=== PATIENT | male | born 1940 | race Caucasian/White ===

== ENCOUNTER → 2022-03-09 13:56 | Outpatient (BNVA) | payer MEDICARE, OTHER, SELFPAY | PROVIDERS: Visit Provider Family Medicine | DX: M25.572 Pain in left ankle and joints of left foot (principal); M10.9 Gout, unspecified | CPT/HCPCS: 73610; 80053; 84550 ==

== ENCOUNTER → 2022-03-27 16:31 | Outpatient (BNVA) | payer MEDICARE, OTHER, SELFPAY | PROVIDERS: PCP Family Medicine; Visit Provider Family Medicine | DX: M10.9 Gout, unspecified (principal); I10 Essential (primary) hypertension | CPT/HCPCS: 84550 ==

== ENCOUNTER → 2022-07-18 16:37 | Outpatient (BNVA) | payer MEDICARE, OTHER, SELFPAY | PROVIDERS: PCP Family Medicine; Visit Provider Family Medicine | DX: I10 Essential (primary) hypertension (principal); M10.9 Gout, unspecified | CPT/HCPCS: 80053; 80061; 84443; 84550; 85025 ==

== ENCOUNTER → 2022-10-03 14:59 | Outpatient (BNVA) | payer MEDICARE, OTHER, SELFPAY | PROVIDERS: PCP Family Medicine; Visit Provider Nurse Practitioner Family | DX: R22.1 Localized swelling, mass and lump, neck (principal) | CPT/HCPCS: 87071; 87880 ==

== ENCOUNTER → 2023-06-22 10:17 | Outpatient (BNVA) | payer MEDICARE, OTHER, SELFPAY | PROVIDERS: PCP Family Medicine; Visit Provider Family Medicine | DX: R30.0 Dysuria (principal) | CPT/HCPCS: 81003; 87077; 87086; 87184 ==

== ENCOUNTER 2024-09-29 16:39 | Emergency (ER) | payer MEDICARE, OTHER, SELFPAY ==
--- NOTE | 2024-09-29 16:40 | XRR_ITS ---
PROCEDURE INFORMATION: Exam: XR Left Knee Exam date and time: 09/29/2024 4:59 PM Age: 84 years old Clinical indication: Pain; Knee; Left; Additional info: Injury/pain TECHNIQUE: Imaging protocol: Radiologic exam of the left knee. Views: 3 views. COMPARISON: CR XR ankle LT min 3V* [id number] 03/09/2022 2:03 PM FINDINGS: Bones/joints: Mild osseous demineralization. No evidence of acute fracture or dislocation. No joint effusion. Soft tissues: The soft tissues are within normal limits. XR/XR knee LT 3V* [id number] IMPRESSION: No evidence of acute fracture or dislocation.
[2024-09-29 16:44] VITALS: BP 149/72; PULSE 63; RESP 18; TEMP 36.7; O2SAT 93
--- NOTE | 2024-09-29 16:52 | W.ED.LOWEXIN ---
Documented by User: ELLEN Marie 09/29/24 16:55 HPI - Extremity Injury (Lower) General: Chief Complaint: Extremity Injury, Lower Stated Complaint: L Knee injury Time Seen by Provider: 09/29/24 16:50 Source: patient and family Mode of arrival: wheelchair Limitations: no limitations History of Present Illness: Patient is a nice 84-year-old male presents to ED today with a complaint of an injury to his left knee. Patient states he was walking to the mailbox when his left knee gave way causing him to fall. He denies any injury sustained during the fall. He states since the incident he has had pain in the left knee. He is able to ambulate but with difficulty due to pain with weight bearing of the knee. He has noticed some swelling. No other concerns at this time apart from the left knee pain. MD complaint: knee injury Onset (ago): hour(s) Injury: Left: knee Place: home Severity: moderate Relieving factors: immobilization Exacerbating factors: weight bearing and movement Context: fall and walking Associated symptoms: Reports inability to bear weight Other symptoms: none Related Data Home Medications Medication Instructions Recorded Confirmed calcium carbonate 600 mg PO BID 03/09/22 06/17/24 cholecalciferol (vitamin D3) 25 25 mcg PO DAILY 03/09/22 06/17/24 mcg (1,000 unit) capsule multivitamin 1 tab PO DAILY 03/09/22 06/17/24 vitamin A-vit C-vit E-zinc-Cu 1 tab PO DAILY 03/09/22 06/17/24 tablet allopurinol 100 mg tablet 100 mg PO DAILY PRN 06/17/24 allopurinol 300 mg tablet 300 mg PO DAILY PRN 06/17/24 Previous Rx's Medication Instructions Recorded amlodipine 10 mg tablet 10 mg PO DAILY #90 tabs 04/18/22 valsartan 160 See Rx Instructions .Route 06/15/23 mg-hydrochlorothiazide 12.5 mg .COMPLEX #90 tabs tablet cephalexin 500 mg capsule 500 mg PO TID 10 days #30 caps 06/17/24 indomethacin 50 mg capsule 50 mg PO TID #60 caps 06/17/24 prednisone 10 mg tablets in a dose See Rx Instructions PO PER PKG DIR 06/17/24 pack #21 ea Allergies Allergy/AdvReac Type Severity Reaction Status Date / Time No Known Allergies Allergy Verified 06/15/23 10:34 Review of Systems Musc: Reports: joint pain (L knee) and joint swelling (L knee) Neuro: Reports: difficulty walking (due to pain in L knee); Denies: numbness in extremities, weakness in extremities or sensory changes PFSH ED PFSH: Medical History No active medical problems Sinus abscess Surgical History History of cholecystectomy History of bilateral cataract extraction Social History Smoking and tobacco/nicotine status: never used tobacco/nicotine Second hand smoke exposure: No Alcohol intake: never Substance/Drug Use: never Lives independently: Yes Household members: spouse Marital status: Physical Exam Const: COMMON NORMALS: no acute distress, average body habitus, patient oriented x3, no limitations, healthy appearing, alert and well nourished Extremity: COMMON NORMALS: capillary refill normal, no clubbing, cyanosis or edema, no calf tenderness and no pedal edema GENERAL: Yes normal exam except as noted LEFT LOWER EXTREMITY: Yes knee joint Left knee: Yes inspection (edema; no bony deformities noted), Yes palpation (reporting diffuse tenderness around the knee joint), Yes ROM (pain with extension/flexion) and Yes neurovascular exam (normal) Neuro: COMMON NORMALS: patient oriented x3, moves all extremities, no focal motor deficits and no sensory deficits noted SENSORIUM/ORIENTATION: Yes alert GAIT: Yes Unable to assess gait Course Vital Signs: Vital signs: Vital Signs Temperature 98.1 F 09/29/24 16:44 Pulse Rate 63 09/29/24 16:44 Respiratory Rate 18 09/29/24 16:44 Blood Pressure 149/72 09/29/24 16:44 Pulse Oximetry 93 09/29/24 16:44 Oxygen Delivery Me thod Room Air 09/29/24 16:44 MDM - Extremity Injury (Lower) Lab Data Radiology Impressions Knee X-Ray 09/29/24 16:40 IMPRESSION: No evidence of acute fracture or dislocation. Discharge Plan Discharge Patient Disposition: Home Clinical Impression: Left knee sprain Qualifiers: Encounter type: initial encounter Involved ligament of knee: unspecified ligament Qualified Code(s): S83.92XA - Sprain of unspecified site of left knee, initial encounter Condition: Stable Prescriptions: No Action amlodipine 10 mg tablet 10 mg PO DAILY Qty: 90 2RF valsartan-hydrochlorothiazide 160-12.5 mg tablet See Rx Instructions .ROUTE .COMPLEX Qty: 90 3RF Dose Instruction: TAKE 1 TABLET EVERY DAY Rx Instructions: TAKE 1 TABLET EVERY DAY allopurinol 300 mg tablet 300 mg PO DAILY PRN allopurinol 100 mg tablet 100 mg PO DAILY PRN cephalexin 500 mg capsule 500 mg PO TID 10 Days Qty: 30 0RF prednisone 10 mg tablets,dose pack See Rx Instructions PO PER PKG DIR Qty: 21 0RF Rx Instructions: PO PER PKG DIR indomethacin 50 mg capsule 50 mg PO TID Qty: 60 0RF Rx Instructions: administer with food or milk calcium carbonate 600 mg calcium (1,500 mg) tablet 600 mg PO BID multivitamin Tablet 1 tab PO DAILY cholecalciferol (vitamin D3) 25 mcg (1,000 unit) capsule 25 mcg PO DAILY vitamin A-vit C-vit E-zinc-Cu Tablet 1 tab PO DAILY Discharge Orders: Discharge ED (Routine); Ordered 09/29/24 Ordered By: Ritesh Bryant Referrals: Batool Varma MD [Primary Care Provider] - Patient Instructions: Knee Sprain (ED) Activity Restrictions/Additional Instructions: Follow-up with orthopedics or primary care as discussed, as you may require an MRI to further assess any ligament damage. In the meantime, please rest the extremity, apply ice and compression devices, and elevate. Tylenol and ibuprofen for pain relief. Please return with any new or worsening symptoms. Sign Out Sign Out Data: Patient Sign Out occurred on 09/29/24 at 17:01. Patient's care was discussed, and care was transferred from ELLEN Marie to ELLEN Nelson. Coding Level of Care Code ED Nurse Licensed Practical for Chg Fwd Documented by User: ELLEN Nelson 09/29/24 21:33 HPI - Extremity Injury (Lower) General: Chief Complaint: Extremity Injury, Lower Stated Complaint: L Knee injury Time Seen by Provider: 09/29/24 16:50 Related Data Home Medications Medication Instructions Recorded Confirmed calcium carbonate 600 mg PO BID 03/09/22 06/17/24 cholecalciferol (vitamin D3) 25 25 mcg PO DAILY 03/09/22 06/17/24 mcg (1,000 unit) capsule multivitamin 1 tab PO DAILY 03/09/22 06/17/24 vitamin A-vit C-vit E-zinc-Cu 1 tab PO DAILY 03/09/22 06/17/24 tablet allopurinol 100 mg tablet 100 mg PO DAILY PRN 06/17/24 allopurinol 300 mg tablet 300 mg PO DAILY PRN 06/17/24 Previous Rx's Medication Instructions Recorded amlodipine 10 mg tablet 10 mg PO DAILY #90 tabs 04/18/22 valsartan 160 See Rx Instructions .Route 06/15/23 mg-hydrochlorothiazide 12.5 mg .COMPLEX #90 tabs tablet cephalexin 500 mg capsule 500 mg PO TID 10 days #30 caps 06/17/24 indomethacin 50 mg capsule 50 mg PO TID #60 caps 06/17/24 prednisone 10 mg tablets in a dose See Rx Instructions PO PER PKG DIR 06/17/24 pack #21 ea Allergies Allergy/AdvReac Type Severity Reaction Status Date / Time No Known Allergies Allergy Verified 06/15/23 10:34 [facility] ED PFSH: Medical History No active medical problems Sinus abscess Surgical History History of cholecystectomy History of bilateral cataract extraction Social History Smoking and tobacco/nicotine status: never used tobacco/nicotine Second hand smoke exposure: No Alcohol intake: never Substance/Drug Use: never Lives independently: Yes Household members: spouse Marital status: Course Vital Signs: Vital signs: Vital Signs Temperature 98.1 F 09/29/24 16:44 Pulse Rate 63 09/29/24 16:44 Respiratory Rate 18 09/29/24 16:44 Blood Pressure 149/72 09/29/24 16:44 Pulse Oximetry 93 09/29/24 16:44 Oxygen Delivery Me thod Room Air 09/29/24 16:44 MDM - Extremity Injury (Lower) Medical Decision Making Care of patient transferred me by dayshift provider. Patient's left knee gave out on him earlier in the day, no history of surgery or previous fractures/injuries to the knee. Exam showing diffuse pain and swelling to the left knee, neurologically intact with no distal symptoms. X-ray not showing any evidence of fracture or dislocation. With the reported instability of the knee and pain, this could potentially resemble a ligament injury in which she would benefit from an MRI. Primary care provider is not in this area, so we will personally refer him to orthopedics for further evaluation. RICE therapy discussed, return precautions given. Lab Data Radiology Impressions Knee X-Ray 09/29/24 16:40 IMPRESSION: No evidence of acute fracture or dislocation. All radiology interpretation(s) finalized by discharge Discharge Plan Discharge Patient Disposition: Home Clinical Impression: Left knee sprain Qualifiers: Encounter type: initial encounter Involved ligament of knee: unspecified ligament Qualified Code(s): S83.92XA - Sprain of unspecified site of left knee, initial encounter Condition: Stable Prescriptions: No Action amlodipine 10 mg tablet 10 mg PO DAILY Qty: 90 2RF valsartan-hydrochlorothiazide 160-12.5 mg tablet See Rx Instructions .ROUTE .COMPLEX Qty: 90 3RF Dose Instruction: TAKE 1 TABLET EVERY DAY Rx Instructions: TAKE 1 TABLET EVERY DAY allopurinol 300 mg tablet 300 mg PO DAILY PRN allopurinol 100 mg tablet 100 mg PO DAILY PRN cephalexin 500 mg capsule 500 mg PO TID 10 Days Qty: 30 0RF prednisone 10 mg tablets,dose pack See Rx Instructions PO PER PKG DIR Qty: 21 0RF Rx Instructions: PO PER PKG DIR indomethacin 50 mg capsule 50 mg PO TID Qty: 60 0RF Rx Instructions: administer with food or milk calcium carbonate 600 mg calcium (1,500 mg) tablet 600 mg PO BID multivitamin Tablet 1 tab PO DAILY cholecalciferol (vitamin D3) 25 mcg (1,000 unit) capsule 25 mcg PO DAILY vitamin A-vit C-vit E-zinc-Cu Tablet 1 tab PO DAILY Discharge Orders: Discharge ED (Routine); Ordered 09/29/24 Ordered By: Ritesh Bryant Referrals: Batool Varma MD [Primary Care Provider] - Patient Instructions: Knee Sprain (ED) Activity Restrictions/Additional Instructions: Follow-up with orthopedics or primary care as discussed, as you may require an MRI to further assess any ligament damage. In the meantime, please rest the extremity, apply ice and compression devices, and elevate. Tylenol and ibuprofen for pain relief. Please return with any new or worsening symptoms. Sign Out Sign Out Data: Patient Sign Out occurred on 09/29/24 at 17:01. Patient's care was discussed, and care was transferred from ELLEN Marie to ELLEN Nelson. Coding Level of Care Code ED Nurse Licensed Practical for Tameka Colmenares
--- NOTE | 2024-10-02 02:16 | DCPLANNER ---
Message sent to Ortho for Left knee Sprain.
== END 2024-09-29 19:48 | disposition home or self-care (01) ==
PROVIDERS: Emergency Provider Physician Assistant; PCP Family Medicine
DX: S83.92XA Sprain of unspecified site of left knee, initial encounter (principal); W19.XXXA Unspecified fall, initial encounter
CPT/HCPCS: 73562; 99283

== ENCOUNTER → 2024-10-24 10:05 | Outpatient (BNVA) | payer MEDICARE, OTHER, SELFPAY | PROVIDERS: PCP Family Medicine; Visit Provider Physician Assistant | DX: M17.12 Unilateral primary osteoarthritis, left knee; R03.0 Elevated blood-pressure reading, without diagnosis of hypertension | CPT/HCPCS: 73560; 73565 ==

== ENCOUNTER 2024-10-24 11:38 | Outpatient (CLI) | payer MEDICARE, OTHER, SELFPAY | END 2024-10-24 11:39 | disposition home or self-care (01) | LOC: SPT 11:39 | PROVIDERS: PCP Family Medicine; Visit Provider Physician Assistant | DX: Z46.89 Encounter for fitting and adjustment of other specified devices (principal); S83.92XD Sprain of unspecified site of left knee, subsequent encounter; X58.XXXD Exposure to other specified factors, subsequent encounter | CPT/HCPCS: 20610; 97760; 99203; J3301; L1852 ==

== ENCOUNTER → 2025-02-17 10:32 | Outpatient (BNVA) | payer MEDICARE, OTHER, SELFPAY | PROVIDERS: PCP Family Medicine; Visit Provider Student in an Organized Health Care Education/Training Program | DX: M17.12 Unilateral primary osteoarthritis, left knee (principal); Z71.89 Other specified counseling | CPT/HCPCS: 99213 ==

== ENCOUNTER → 2025-05-20 09:55 | Outpatient (BNVA) | payer MEDICARE, OTHER, SELFPAY | PROVIDERS: PCP Family Medicine; Visit Provider Student in an Organized Health Care Education/Training Program | DX: M17.12 Unilateral primary osteoarthritis, left knee (principal); Z71.89 Other specified counseling | CPT/HCPCS: 20610; 99213; J3301; J9999 ==